=== PATIENT | male | born 1995 | race Caucasian/White ===

== ENCOUNTER 2022-06-06 11:03 | Emergency (ER) | payer OTHER, SELFPAY ==
[2022-06-06 11:13] VITALS: BP 151/86; PULSE 90; RESP 16; TEMP 36.9; O2SAT 97; BMI 32.5
[2022-06-06] MEDS: KETOROLAC 30 MG/ML VIAL IM (11:43)
[2022-06-06] MEDS: LIDOCAINE PATCH 1 EACH ADH..PATCH TOP (11:43)
--- NOTE | 2022-06-06 11:51 | ED_ITS ---
HPI - Back Pain/Injury General Chief Complaint: Back Pain/Injury Stated Complaint: Back pain Time Seen by Provider: 06/06/22 11:15 History of Present Illness HPI Narrative: 27-year-old male nonsmoker with history of prior back issues presents with a chief complaint of lower back pain. He states that he denies any significant traumatic event but was getting out of the shower yesterday while pulling up his underwear felt a pulling pain in his lower back. The pain is worse when he mov es and improves with rest. He denies any radiation of the pain. He denies any difficulty controlling bowel or bladder. He has no numbness, tingling or weakness of his extremities and denies any footdrop. He denies fever or chills, history of IV drug abuse or use of blood thinners. Related Data Previous Rx's Medication Instructions Recorded cyclobenzaprine 10 mg tablet 10 mg PO TID PRN muscle spasm #14 06/06/22 tabs hydrocodone 5 mg-acetaminophen 325 1 tab PO Q4-6H PRN pain #10 tabs 06/06/22 mg tablet ketorolac 10 mg tablet 10 mg PO Q6H PRN pain #14 tabs 06/06/22 lidocaine 5 % topical patch 1 patch topical DAILY #15 ea 06/06/22 (Lidoderm) Allergies Allergy/AdvReac Type Severity Reaction Status Date / Time No Known Drug Allergies Allergy Verified 06/06/22 12:00 Review of Systems Review of Systems Narrative: GENERAL: Denies chills, fatigue, malaise, fever, sweats. HEENT: Denies sinus pain, ear pain, sore throat, difficulty swallowing, dizziness. RESPIRATORY: Denies dyspnea, cough, wheezing, hemoptysis, sputum. CARDIOVASCULAR: Denies chest pain, palpitations, orthopnea, edema, GASTROINTESTINAL: Denies nausea, vomiting, abdominal pain, diarrhea, constipation, melena. : Denies dysuria, frequency, incontinence, hematuria, urinary retention. MUSCULOSKELETAL: See HPI SKIN: Denies rash, skin lesions, or other NEUROLOGIC: Denies weakness, headache, numbness, change in speech, confusion, seizures, incoordination. PSYCHIATRIC: No concerning psychosocial issues. 12 point review of systems is negative except for those stated above Exam Narrative Exam Narrative: GENERAL: [27] year old patient appears stated age. Well-developed patient, in mild distress. HEAD: Atraumatic. Normocephalic. EYES: Pupils equal round and reactive. Extraocular motions intact. No scleral icterus. No injection or drainage. ENT: Nose without bleeding, purulent drainage. Throat without erythema, tonsillar hypertrophy or exudate. Airway patent. NECK: Trachea midline. Non tender CARDIOVASCULAR: Regular rate and rhythm without murmurs, gallops, or rubs. RESPIRATORY: Clear to auscultation. Breath sounds equal bilaterally. No wheezes, rales, or rhonchi. GASTROINTESTINAL: Abdomen soft, non-tender, nondistended. EXTREMITIES: No edema or joint tenderness. 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 Patient exam notes decreased range of motion and muscle spasm, but no CVA tenderness, or vertebral point tenderness. There are no symptoms of cauda equina such as saddle anesthesia, and decreased reflexes, decreased sensation or strength. NEURO: AOx3. SKIN: No rash or erythema of visible areas Initial Vital Signs Initial Vital Signs: Vital Signs Temperature 98.4 F 06/06/22 11:13 Pulse Rate 90 06/06/22 11:13 Respiratory Rate 16 06/06/22 11:13 Blood Pressure 151/86 H 06/06/22 11:13 Pulse Oximetry 97 06/06/22 11:13 Oxygen Delivery Method 06/06/22 11:13 Course Orders Ordered: Discontinued Medications Ketorolac Tromethamine (Ketorolac 30 Mg/Ml Vial) 30 mg IM NOW ONE Stop: 06/06/22 11:31 Last Admin: 06/06/22 11:43 Dose: 30 mg Documented By: SNEHA Lidocaine (Lidocaine Patch 1 Each Adh..Patch) 1 each TOP NOW ONE Stop: 06/06/22 11:31 Last Admin: 06/06/22 11:43 Dose: 1 each Documented By: SNEHA Lidocaine (Remove Lidocaine Patch) 1 each TOP BEDTIME LUZ Vital Signs Vital signs: Vital Signs - 8 hr 06/06/22 11:13 Temperature 98.4 F Pulse Rate 90 Respiratory Rate 16 Blood Pressure 151/86 H Pulse Oximetry 97 Oxygen Delivery Method Room Air MDM - Back Pain/Injury MDM Narrative Medical decision making narrative: [27-year-old male with back pain after bending and twisting while pulling up his underwear] Multiple etiologies for patient's symptoms considered including, but not limited to: [Muscle spasm, radiculopathy, cauda equina, epidural abscess versus other] Prior Charts reviewed: None available Multiple etiologies of back pain considered including; Epidural abscess, cauda equina, mass occupying lesion, and other considered however no red flag findings of a neurosurgical emergency are present. Patient's symptoms improved over duration of stay with above-stated therapies. Findings and discharge diagnosis discussed with patient/family followed by verbalization of understanding Return precautions discussed with patient/family whom verbalize understanding of diagnosis and plan Discharge Plan Departure Patient Disposition: Home Clinical Impression: Strain of lumbar region Instructions: DI for Back Spasm Activity Restrictions/Additional Instructions: *You have been diagnosed with [lumbar pain and spasm. As we discussed your history and physical exam are reassuring and there is no indication of a neurosurgical emergency that would require any specific or immediate intervention] *What to do: *Please continue to take your regular medications as directed. [x ] New medication prescriptions sent to your pharmacy: [[facility] ] [ ] New medication written as a paper prescription [ ] No new medications given *Please follow up with your primary care provider in 2-3 days, call for an appointment. Let them know you were seen in the Emergency Department and that we ask that you be seen in follow up. We will electronically transmit a record of today's note if your PCP is in our system *If you do not have a primary care provider please contact the [facility] Resource line at [phone]. They will ask some questions about your medical history and help get you set up with a doctor in the community. *Return to Emergency Department if you should have any new, worsening or concerning symptoms, such as [fever greater than 101 F, shaking chills, worsening pain, persistent vomiting, lower extremity weakness, loss of control of bowel or bladder, or other bothersome symptoms] You have been prescribed a short course of narcotic medications. These are potentially dangerous and addictive medications that should be used carefully. While on these medications you cannot drive or operate heavy machinery. Additionally, you cannot sign legal documents or perform any duties such as this. Many people get constipated on narcotic medications so it would be advisable to discuss stool softeners with the pharmacist when you pickling grader your prescription. Please understand that we cannot provide further refills of narcotics or controlled substances through the ED and your pain management will need to be through your Primary Care Provider Prescriptions: New cyclobenzaprine 10 mg tablet 10 mg PO TID PRN (Reason: muscle spasm) Qty: 14 0RF hydrocodone-acetaminophen 5-325 mg tablet 1 tab PO Q4-6H PRN (Reason: pain) Qty: 10 0RF ketorolac 10 mg tablet 10 mg PO Q6H PRN (Reason: pain) Qty: 14 0RF lidocaine [Lidoderm] 5 % adhesive patch,medicated 1 patch TOP DAILY Qty: 15 0RF Rx Instructions: leave on most painful area for 12 hrs Stand Alone Forms: Patient Portal/API
== END 2022-06-06 12:00 | disposition home or self-care (01) ==
PROVIDERS: Emergency Provider Emergency Medicine
DX: S39.012A Strain of muscle, fascia and tendon of lower back, initial encounter (principal); X58.XXXA Exposure to other specified factors, initial encounter
CPT/HCPCS: 96372; 99283; J1885